=== PATIENT | female | born 1965 | race African-American/Black ===

== ENCOUNTER 2018-01-23 12:25 | Inpatient (IN) | payer OTHER ==
--- NOTE | 2018-01-23 10:54 | HP ---
[facility] Rehab Assess/Revision - Admission History Admitted to Rehab from: [facility] Date of Admission to Rehab: 01/23/18 - Findings Detox History & Physical reviewed: Yes Concur with findings: Yes Comments/Additional Findings: transferred from detox to rehab admission as per protocol Inpatient Rehab Admission - Initial Determination Are CD services needed?: Yes Free of communicable disease: Yes Not in need of hospitalization: Yes - Rehab Admission Criteria Previous failed treatment: Yes Poor recovery environment: Yes Comorbidities: Yes Lacks judgement: No Patient is meeting Inpatient Rehab admission criteria:: Yes
[~2018-01-23 12:25] MED LIST: ACETAMINOPHEN 325 MG TABLET (FP) PO PRN; IBUPROFEN 400 MG TABLET (FP) PO PRN; LOPERAMIDE HCL 2 MG CAPSULE PO PRN; MAGNESIUM CITRATE 300 ML BOTTLE PO PRN; MAGNESIUM HYDROX 2400MG/30ML ORAL SUSPENSION 30 ML CUP PO PRN; MENTHOL/PHENOL 1 EACH UD MM PRN; NICOTINE 14 MG/24 HOURS TOPICAL PATCH TD PRN; NICOTINE POLACRILEX 2 MG GUM BUC PRN; P-EPHED 60MG/TRIPROLIDI 2.5MG TABLET PO PRN; guaiFENesin/D-METHORPHAN HB 10 ML UNIT-DOSE CUPS PO PRN
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
[2018-01-23] MEDS ORDERED: INSULIN (NOVOLOG) ASPART 100 UNITS/ML 10ML VIAL SQ ONE (15:30)
--- NOTE | 2018-01-23 17:02 | PN ---
S Progress Note Note: Vital Signs Temperature 97.2 F L 01/23/18 12:46 Pulse Rate 97 H 01/23/18 12:46 Respiratory Rate 18 01/23/18 12:46 Blood Pressure 129/73 01/23/18 12:46 O2 Sat by Pulse Oximetry (%) last BGM 378 novolog 4 units ordered increase PO fluids continue to monitor
[2018-01-23] MEDS: THIAMINE HCL 100 MG TABLET (FP) PO SCH (21:34)
[2018-01-23] MEDS: LISINOPRIL 20 MG TABLET (FP) PO SCH (21:35)
[2018-01-23] MEDS: QUEtiapine FUMARATE 200 MG TABLET PO SCH (21:35)
[2018-01-23] MEDS ORDERED: LISINOPRIL 20 MG TABLET (FP) PO SCH (22:00)
[2018-01-24] MEDS ORDERED: PT OWN MED DRAWER 7, Y5N ONE (05:58)
[2018-01-24] MEDS: metFORMIN HCL 500 MG TABLET (FP) PO SCH (06:52)
[2018-01-24] MEDS: glyBURIDE 5 MG TABLET (UD) PO SCH (06:52)
[2018-01-24] MEDS ORDERED: INSULIN (NOVOLOG) ASPART 100 UNITS/ML 10ML VIAL SQ ONE ×2 (08:08→12:06)
[2018-01-24] MEDS ORDERED: INSULIN (NOVOLOG) ASPART 100 UNITS/ML 10ML VIAL ONE ×2 (08:43→12:18)
[2018-01-24] MEDS ORDERED: amLODIPine BESYLATE 10 MG TABLET (FP) PO SCH (10:00)
[2018-01-24] MEDS: LISINOPRIL 20 MG TABLET (FP) PO SCH ×2 (10:39→21:38)
[2018-01-24] MEDS: amLODIPine BESYLATE 10 MG TABLET (FP) PO SCH (10:39)
[2018-01-24] MEDS: PRENATAL VITAMINS W/ FOLIC ACID TABLET (FP) PO SCH (10:39)
[2018-01-24] MEDS: QUEtiapine FUMARATE 200 MG TABLET PO SCH ×2 (10:39→21:37)
[2018-01-24] MEDS ORDERED: INSULIN SLIDING SCALE (NOVOLOG) 1 VIAL SQ SCH (11:00)
--- NOTE | 2018-01-24 12:09 | PN ---
[facility] Progress Note Note: received nurse called finger stick 400 insulin regular 10 unit one dose now before lunch
[2018-01-24] MEDS: INSULIN SLIDING SCALE (NOVOLOG) 1 VIAL SQ PRN (17:04)
[2018-01-24] MEDS: THIAMINE HCL 100 MG TABLET (FP) PO SCH (21:38)
[2018-01-25] MEDS: glyBURIDE 5 MG TABLET (UD) PO SCH (07:31)
[2018-01-25] MEDS: metFORMIN HCL 500 MG TABLET (FP) PO SCH (07:31)
[2018-01-25] MEDS: INSULIN SLIDING SCALE (NOVOLOG) 1 VIAL SQ PRN ×2 (07:33→17:05)
[2018-01-25] MEDS ORDERED: INSULIN (NOVOLOG) ASPART 100 UNITS/ML 10ML VIAL ONE (07:34)
[2018-01-25] MEDS: LISINOPRIL 20 MG TABLET (FP) PO SCH ×2 (09:22→21:29)
[2018-01-25] MEDS: amLODIPine BESYLATE 10 MG TABLET (FP) PO SCH (09:22)
[2018-01-25] MEDS: PRENATAL VITAMINS W/ FOLIC ACID TABLET (FP) PO SCH (09:22)
[2018-01-25] MEDS: QUEtiapine FUMARATE 200 MG TABLET PO SCH ×2 (09:22→21:29)
[2018-01-25] MEDS ORDERED: PT OWN MED DRAWER 7, Y5N ONE ×2 (10:30→12:02)
[2018-01-25] MEDS: MAG HYDROX/AL HYDROX/SIMETH 30 ML UNIT-DOSE CUP PO PRN (11:06)
--- NOTE | 2018-01-25 13:55 | PN ---
S Progress Note Note: Vital Signs Temperature 98.1 F 01/25/18 07:48 Pulse Rate 77 01/25/18 09:24 Respiratory Rate 16 01/25/18 07:48 Blood Pressure 142/75 01/25/18 09:24 O2 Sat by Pulse Oximetry (%) Laboratory Last Values POC Glucometer 317 UNITS (80-120) 01/25/18 07:30 Patient currently taken zocor (NF) 20 mg qhs at home. lipitor ordered continue to monitor
--- NOTE | 2018-01-25 14:48 | PN ---
[facility] Progress Note Note: Vital Signs Temperature 98.1 F 01/25/18 07:48 Pulse Rate 77 01/25/18 09:24 Respiratory Rate 16 01/25/18 07:48 Blood Pressure 142/75 01/25/18 09:24 O2 Sat by Pulse Oximetry (%) Laboratory Last Values POC Glucometer 317 UNITS (80-120) 01/25/18 07:30 Patient reports hx of GERD and esophageal spasms. Reports while she was living in [place] her GI specialist treated her with Nitrostat and calcium channel blockers in 2007. Patient reports worsning reflux while in rehab and difficulty sleeping as result. Patient Aox3 no distress, obese EENT WNL, poor dentition no adventitious breath sounds full ROM - GERD Plan: protonix BID flexeril PRN low acidic diet fluids as tolerated continue to monitor Patient to follow up with GI upon discharge
[2018-01-25] MEDS: CYCLOBENZAPRINE HCL 5 MG TABLET PO SCH (21:31)
[2018-01-25] MEDS: ATORVASTATIN CA 20 MG TABLET (FP) PO SCH (21:31)
[2018-01-25] MEDS: MELATONIN 5 MG TABLETS PO PRN (21:31)
[2018-01-25] MEDS: PANTOPRAZOLE 40 MG TABLET (FP) PO SCH (21:37)
[2018-01-25] MEDS: THIAMINE HCL 100 MG TABLET (FP) PO SCH (21:40)
[2018-01-26] MEDS: glyBURIDE 5 MG TABLET (UD) PO SCH (06:38)
[2018-01-26] MEDS: metFORMIN HCL 500 MG TABLET (FP) PO SCH (06:38)
[2018-01-26] MEDS: CYCLOBENZAPRINE HCL 5 MG TABLET PO SCH ×3 (06:38→21:23)
[2018-01-26] MEDS: INSULIN SLIDING SCALE (NOVOLOG) 1 VIAL SQ PRN ×2 (07:51→11:55)
[2018-01-26] MEDS ORDERED: INSULIN (NOVOLOG) ASPART 100 UNITS/ML 10ML VIAL ONE ×2 (07:54→11:53)
[2018-01-26] MEDS: amLODIPine BESYLATE 10 MG TABLET (FP) PO SCH (10:11)
[2018-01-26] MEDS: QUEtiapine FUMARATE 200 MG TABLET PO SCH ×2 (10:12→21:24)
[2018-01-26] MEDS: LISINOPRIL 20 MG TABLET (FP) PO SCH ×2 (10:12→21:23)
[2018-01-26] MEDS: PANTOPRAZOLE 40 MG TABLET (FP) PO SCH ×2 (10:12→21:23)
[2018-01-26] MEDS: PRENATAL VITAMINS W/ FOLIC ACID TABLET (FP) PO SCH (10:12)
[2018-01-26] MEDS: MAG HYDROX/AL HYDROX/SIMETH 30 ML UNIT-DOSE CUP PO PRN (11:54)
--- NOTE | 2018-01-26 17:15 | PN ---
S Progress Note Note: NOTIFIED BY RN BLOOD SUGAR 362. PATIENT HAS SLIDING SCALE ORDERED AND IS DUE FOR 8 UNITS OF INSULIN. WILL CONTINUE TO MONITOR CLINICALLY. Vital Signs Temperature 97.4 F L 01/26/18 07:15 Pulse Rate 85 01/26/18 09:20 Respiratory Rate 18 01/26/18 07:15 Blood Pressure 150/80 01/26/18 09:20 O2 Sat by Pulse Oximetry (%)
[2018-01-26] MEDS: THIAMINE HCL 100 MG TABLET (FP) PO SCH (21:23)
[2018-01-26] MEDS: ATORVASTATIN CA 20 MG TABLET (FP) PO SCH (21:24)
[2018-01-27] MEDS: CYCLOBENZAPRINE HCL 5 MG TABLET PO SCH ×3 (06:25→21:21)
[2018-01-27] MEDS: glyBURIDE 5 MG TABLET (UD) PO SCH (06:25)
[2018-01-27] MEDS: metFORMIN HCL 500 MG TABLET (FP) PO SCH (06:26)
[2018-01-27] MEDS: INSULIN SLIDING SCALE (NOVOLOG) 1 VIAL SQ PRN ×2 (08:12→11:46)
[2018-01-27] MEDS ORDERED: INSULIN (NOVOLOG) ASPART 100 UNITS/ML 10ML VIAL ONE ×2 (08:12→11:46)
[2018-01-27] MEDS: QUEtiapine FUMARATE 200 MG TABLET PO SCH ×2 (09:56→21:21)
[2018-01-27] MEDS: amLODIPine BESYLATE 10 MG TABLET (FP) PO SCH (09:56)
[2018-01-27] MEDS: PANTOPRAZOLE 40 MG TABLET (FP) PO SCH ×2 (09:56→21:21)
[2018-01-27] MEDS: PRENATAL VITAMINS W/ FOLIC ACID TABLET (FP) PO SCH (09:56)
[2018-01-27] MEDS: LISINOPRIL 20 MG TABLET (FP) PO SCH ×2 (09:56→21:21)
[2018-01-27] MEDS: INSULIN SLIDING SCALE (NOVOLOG) 1 VIAL SQ SCH ×2 (16:48→21:58)
[2018-01-27] MEDS: THIAMINE HCL 100 MG TABLET (FP) PO SCH (21:21)
[2018-01-27] MEDS: ATORVASTATIN CA 20 MG TABLET (FP) PO SCH (21:21)
[2018-01-28] MEDS: CYCLOBENZAPRINE HCL 5 MG TABLET PO SCH ×3 (07:03→21:21)
[2018-01-28] MEDS: glyBURIDE 5 MG TABLET (UD) PO SCH (07:03)
[2018-01-28] MEDS: metFORMIN HCL 500 MG TABLET (FP) PO SCH (07:03)
[2018-01-28] MEDS: INSULIN SLIDING SCALE (NOVOLOG) 1 VIAL SQ SCH ×4 (07:04→21:57)
[2018-01-28] MEDS ORDERED: INSULIN (NOVOLOG) ASPART 100 UNITS/ML 10ML VIAL ONE ×2 (08:09→12:00)
[2018-01-28] MEDS: LISINOPRIL 20 MG TABLET (FP) PO SCH ×2 (09:50→21:21)
[2018-01-28] MEDS: PRENATAL VITAMINS W/ FOLIC ACID TABLET (FP) PO SCH (09:50)
[2018-01-28] MEDS: QUEtiapine FUMARATE 200 MG TABLET PO SCH ×2 (09:50→21:21)
[2018-01-28] MEDS: PANTOPRAZOLE 40 MG TABLET (FP) PO SCH ×2 (09:50→21:21)
[2018-01-28] MEDS: amLODIPine BESYLATE 10 MG TABLET (FP) PO SCH (09:50)
[2018-01-28] MEDS: THIAMINE HCL 100 MG TABLET (FP) PO SCH (21:21)
[2018-01-28] MEDS: ATORVASTATIN CA 20 MG TABLET (FP) PO SCH (21:21)
[2018-01-29] MEDS: metFORMIN HCL 500 MG TABLET (FP) PO SCH (06:26)
[2018-01-29] MEDS: glyBURIDE 5 MG TABLET (UD) PO SCH (06:26)
[2018-01-29] MEDS: CYCLOBENZAPRINE HCL 5 MG TABLET PO SCH ×3 (06:26→21:12)
[2018-01-29] MEDS: INSULIN SLIDING SCALE (NOVOLOG) 1 VIAL SQ SCH ×4 (07:49→22:54)
[2018-01-29] MEDS: amLODIPine BESYLATE 10 MG TABLET (FP) PO SCH (10:29)
[2018-01-29] MEDS: PANTOPRAZOLE 40 MG TABLET (FP) PO SCH ×2 (10:29→21:12)
[2018-01-29] MEDS: PRENATAL VITAMINS W/ FOLIC ACID TABLET (FP) PO SCH (10:29)
[2018-01-29] MEDS: LISINOPRIL 20 MG TABLET (FP) PO SCH ×2 (10:29→21:12)
[2018-01-29] MEDS: QUEtiapine FUMARATE 200 MG TABLET PO SCH ×2 (10:29→21:13)
[2018-01-29] MEDS ORDERED: INSULIN (NOVOLOG) ASPART 100 UNITS/ML 10ML VIAL ONE (11:58)
--- NOTE | 2018-01-29 19:11 | PN ---
[facility] Progress Note Note: Patient alert and oriented. Vital Signs - 24 hr 01/28/18 01/29/18 01/29/18 20:45 00:30 03:30 Temperature Pulse Rate 84 Respiratory 16 18 Rate Blood Pressure 144/79 01/29/18 01/29/18 07:13 09:30 Temperature 97.7 F Pulse Rate 83 86 Respiratory 20 18 Rate Blood Pressure 133/81 136/76 Continues to have elevated BGMs. CMP POC Glucometer 318 UNITS (80-120) 01/29/18 16:57 BGMs reviewed for past 48 hrs. Reviewed home meds and was receivng Basaglar. Started on Levemir HS. Will continue Novolog coverage.
[2018-01-29] MEDS: THIAMINE HCL 100 MG TABLET (FP) PO SCH (21:12)
[2018-01-29] MEDS: ATORVASTATIN CA 20 MG TABLET (FP) PO SCH (21:12)
[2018-01-29] MEDS: INSULIN (LEVEMIR) 100 UNITS/ML UNITS SQ SCH (22:53)
[2018-01-30] MEDS: CYCLOBENZAPRINE HCL 5 MG TABLET PO SCH ×3 (07:07→22:39)
[2018-01-30] MEDS: glyBURIDE 5 MG TABLET (UD) PO SCH (07:07)
[2018-01-30] MEDS: metFORMIN HCL 500 MG TABLET (FP) PO SCH (07:07)
[2018-01-30] MEDS: INSULIN SLIDING SCALE (NOVOLOG) 1 VIAL SQ SCH ×4 (07:55→22:39)
[2018-01-30] MEDS ORDERED: INSULIN (NOVOLOG) ASPART 100 UNITS/ML 10ML VIAL ONE ×3 (07:56→16:41)
[2018-01-30] MEDS: amLODIPine BESYLATE 10 MG TABLET (FP) PO SCH (10:19)
[2018-01-30] MEDS: PANTOPRAZOLE 40 MG TABLET (FP) PO SCH ×2 (10:20→22:40)
[2018-01-30] MEDS: QUEtiapine FUMARATE 200 MG TABLET PO SCH ×2 (10:20→22:40)
[2018-01-30] MEDS: PRENATAL VITAMINS W/ FOLIC ACID TABLET (FP) PO SCH (10:20)
[2018-01-30] MEDS: LISINOPRIL 20 MG TABLET (FP) PO SCH ×2 (10:20→22:40)
--- NOTE | 2018-01-30 17:25 | PN ---
S Progress Note Note: Vital Signs Temperature 97.9 F 01/30/18 09:30 Pulse Rate 92 H 01/30/18 09:30 Respiratory Rate 18 01/30/18 09:30 Blood Pressure 146/84 01/30/18 09:30 O2 Sat by Pulse Oximetry (%) Patient BGM at this time 510 schedule for 10 units re: sliding scale and additional 4 units ordered. Increase PO fluids continue to monitor
[2018-01-30] MEDS ORDERED: INSULIN (NOVOLOG) ASPART 100 UNITS/ML 10ML VIAL SQ ONE (17:45)
[2018-01-30] MEDS: ATORVASTATIN CA 20 MG TABLET (FP) PO SCH (22:39)
[2018-01-30] MEDS: THIAMINE HCL 100 MG TABLET (FP) PO SCH (22:40)
[2018-01-30] MEDS: INSULIN (LEVEMIR) 100 UNITS/ML UNITS SQ SCH (22:40)
[2018-01-30] MEDS ORDERED: PT OWN MED DRAWER 7, Y5N ONE (23:15)
[2018-01-31] MEDS: CYCLOBENZAPRINE HCL 5 MG TABLET PO SCH ×3 (07:26→21:27)
[2018-01-31] MEDS: INSULIN SLIDING SCALE (NOVOLOG) 1 VIAL SQ SCH ×5 (07:26→21:28)
[2018-01-31] MEDS: glyBURIDE 5 MG TABLET (UD) PO SCH (07:26)
[2018-01-31] MEDS: metFORMIN HCL 500 MG TABLET (FP) PO SCH (07:26)
[2018-01-31] MEDS ORDERED: INSULIN SLIDING SCALE (NOVOLOG) 1 VIAL SQ SCH (07:38)
[2018-01-31] MEDS ORDERED: INSULIN (NOVOLOG) ASPART 100 UNITS/ML 10ML VIAL ONE ×4 (07:52→21:54)
[2018-01-31] MEDS: amLODIPine BESYLATE 10 MG TABLET (FP) PO SCH (09:52)
[2018-01-31] MEDS: PANTOPRAZOLE 40 MG TABLET (FP) PO SCH ×2 (09:53→21:27)
[2018-01-31] MEDS: PRENATAL VITAMINS W/ FOLIC ACID TABLET (FP) PO SCH (09:53)
[2018-01-31] MEDS: LISINOPRIL 20 MG TABLET (FP) PO SCH ×2 (09:53→21:27)
[2018-01-31] MEDS: QUEtiapine FUMARATE 200 MG TABLET PO SCH ×2 (09:53→21:27)
--- NOTE | 2018-01-31 12:15 | PN ---
S Progress Note Note: NOTIFIED BY RN PATIENT BLOOD SUGAR 418. HAS SLIDING SCALE ORDERED TO RECEIVE 12 UNITS OF INSULIN. AGREE FOR PATIENT TO RECEIVE 12 UNITS. WILL CONTINUE TO MONITOR CLINICALLY.
[2018-01-31] MEDS ORDERED: COLLOIDAL OATMEAL 1 BAR EACH TP PRN (14:22)
--- NOTE | 2018-01-31 14:24 | PN ---
[facility] Progress Note Note: PATIENT REFERRED FOR C/O SORE THROAT WHICH SHE STATES NOW RESOLVED WITH TEA AND LEMON. NO TREATMENT WARRANTED AT THIS TIME. Vital Signs Temperature 97.4 F L 01/31/18 06:34 Pulse Rate 99 H 01/31/18 09:30 Respiratory Rate 18 01/31/18 09:30 Blood Pressure 123/82 01/31/18 09:30 O2 Sat by Pulse Oximetry (%)
[2018-01-31] MEDS: THIAMINE HCL 100 MG TABLET (FP) PO SCH (21:27)
[2018-01-31] MEDS: ATORVASTATIN CA 20 MG TABLET (FP) PO SCH (21:27)
[2018-01-31] MEDS: INSULIN (LEVEMIR) 100 UNITS/ML UNITS SQ SCH (21:29)
[2018-02-01] MEDS: CYCLOBENZAPRINE HCL 5 MG TABLET PO SCH ×3 (06:55→21:17)
[2018-02-01] MEDS: metFORMIN HCL 500 MG TABLET (FP) PO SCH (06:55)
[2018-02-01] MEDS: glyBURIDE 5 MG TABLET (UD) PO SCH (06:55)
[2018-02-01] MEDS: INSULIN SLIDING SCALE (NOVOLOG) 1 VIAL SQ SCH ×4 (07:53→21:18)
[2018-02-01] MEDS ORDERED: INSULIN (NOVOLOG) ASPART 100 UNITS/ML 10ML VIAL ONE ×4 (07:56→20:44)
[2018-02-01] MEDS: QUEtiapine FUMARATE 200 MG TABLET PO SCH ×2 (10:02→21:17)
[2018-02-01] MEDS: LISINOPRIL 20 MG TABLET (FP) PO SCH ×2 (10:02→21:17)
[2018-02-01] MEDS: amLODIPine BESYLATE 10 MG TABLET (FP) PO SCH (10:02)
[2018-02-01] MEDS: PRENATAL VITAMINS W/ FOLIC ACID TABLET (FP) PO SCH (10:03)
[2018-02-01] MEDS: PANTOPRAZOLE 40 MG TABLET (FP) PO SCH ×2 (10:03→21:18)
[2018-02-01] MEDS: THIAMINE HCL 100 MG TABLET (FP) PO SCH (21:17)
[2018-02-01] MEDS: ATORVASTATIN CA 20 MG TABLET (FP) PO SCH (21:17)
[2018-02-01] MEDS: INSULIN (LEVEMIR) 100 UNITS/ML UNITS SQ SCH (21:17)
[2018-02-02] MEDS: metFORMIN HCL 500 MG TABLET (FP) PO SCH (07:42)
[2018-02-02] MEDS: CYCLOBENZAPRINE HCL 5 MG TABLET PO SCH ×3 (07:42→21:14)
[2018-02-02] MEDS: glyBURIDE 5 MG TABLET (UD) PO SCH (07:42)
[2018-02-02] MEDS: INSULIN SLIDING SCALE (NOVOLOG) 1 VIAL SQ SCH ×4 (07:44→21:14)
[2018-02-02] MEDS ORDERED: INSULIN (NOVOLOG) ASPART 100 UNITS/ML 10ML VIAL ONE ×4 (07:45→21:59)
[2018-02-02] MEDS: PANTOPRAZOLE 40 MG TABLET (FP) PO SCH ×2 (09:41→21:14)
[2018-02-02] MEDS: PRENATAL VITAMINS W/ FOLIC ACID TABLET (FP) PO SCH (09:41)
[2018-02-02] MEDS: LISINOPRIL 20 MG TABLET (FP) PO SCH ×2 (09:41→21:14)
[2018-02-02] MEDS: QUEtiapine FUMARATE 200 MG TABLET PO SCH ×2 (09:41→21:15)
[2018-02-02] MEDS: amLODIPine BESYLATE 10 MG TABLET (FP) PO SCH (09:41)
--- NOTE | 2018-02-02 17:16 | PN ---
S Progress Note Note: Vital Signs Temperature 97.6 F 02/02/18 07:50 Pulse Rate 112 H 02/02/18 09:30 Respiratory Rate 18 02/02/18 09:30 Blood Pressure 162/77 02/02/18 09:30 O2 Sat by Pulse Oximetry (%) Patient reports she is on metformin 1000mg BID at home prescribed by her PCP and current QD dose is working in managing her. Dose increase from QD to BID. Continue to monitor
[2018-02-02] MEDS: INSULIN (LEVEMIR) 100 UNITS/ML UNITS SQ SCH (21:14)
[2018-02-02] MEDS: ATORVASTATIN CA 20 MG TABLET (FP) PO SCH (21:14)
[2018-02-02] MEDS: THIAMINE HCL 100 MG TABLET (FP) PO SCH (21:14)
[2018-02-03] MEDS: CYCLOBENZAPRINE HCL 5 MG TABLET PO SCH ×3 (06:12→21:14)
[2018-02-03] MEDS ORDERED: INSULIN (NOVOLOG) ASPART 100 UNITS/ML 10ML VIAL ONE ×3 (07:13→16:42)
[2018-02-03] MEDS: metFORMIN HCL 500 MG TABLET (FP) PO SCH ×2 (07:49→16:41)
[2018-02-03] MEDS: glyBURIDE 5 MG TABLET (UD) PO SCH (07:49)
[2018-02-03] MEDS: INSULIN SLIDING SCALE (NOVOLOG) 1 VIAL SQ SCH ×4 (07:50→21:09)
[2018-02-03] MEDS: QUEtiapine FUMARATE 200 MG TABLET PO SCH ×2 (09:55→21:10)
[2018-02-03] MEDS: PRENATAL VITAMINS W/ FOLIC ACID TABLET (FP) PO SCH (09:55)
[2018-02-03] MEDS: PANTOPRAZOLE 40 MG TABLET (FP) PO SCH ×2 (09:55→21:14)
[2018-02-03] MEDS: LISINOPRIL 20 MG TABLET (FP) PO SCH ×2 (09:56→21:14)
[2018-02-03] MEDS: amLODIPine BESYLATE 10 MG TABLET (FP) PO SCH (09:56)
[2018-02-03] MEDS: INSULIN (LEVEMIR) 100 UNITS/ML UNITS SQ SCH (21:11)
[2018-02-03] MEDS: ATORVASTATIN CA 20 MG TABLET (FP) PO SCH (21:14)
[2018-02-03] MEDS: THIAMINE HCL 100 MG TABLET (FP) PO SCH (21:15)
[2018-02-03] MEDS: MELATONIN 5 MG TABLETS PO PRN (21:15)
[2018-02-04] MEDS: CYCLOBENZAPRINE HCL 5 MG TABLET PO SCH ×3 (07:05→23:25)
[2018-02-04] MEDS: metFORMIN HCL 500 MG TABLET (FP) PO SCH ×2 (07:06→16:54)
[2018-02-04] MEDS: glyBURIDE 5 MG TABLET (UD) PO SCH (07:06)
[2018-02-04] MEDS ORDERED: PT OWN MED DRAWER 7, Y5N ONE (07:50)
[2018-02-04] MEDS: INSULIN SLIDING SCALE (NOVOLOG) 1 VIAL SQ SCH ×4 (07:51→21:25)
[2018-02-04] MEDS ORDERED: INSULIN (NOVOLOG) ASPART 100 UNITS/ML 10ML VIAL ONE ×2 (07:54→11:51)
[2018-02-04] MEDS: amLODIPine BESYLATE 10 MG TABLET (FP) PO SCH (10:03)
[2018-02-04] MEDS: PANTOPRAZOLE 40 MG TABLET (FP) PO SCH ×2 (10:03→23:26)
[2018-02-04] MEDS: LISINOPRIL 20 MG TABLET (FP) PO SCH ×2 (10:03→23:26)
[2018-02-04] MEDS: PRENATAL VITAMINS W/ FOLIC ACID TABLET (FP) PO SCH (10:04)
[2018-02-04] MEDS: QUEtiapine FUMARATE 200 MG TABLET PO SCH ×2 (10:04→23:26)
[2018-02-04] MEDS: INSULIN (LEVEMIR) 100 UNITS/ML UNITS SQ SCH (21:25)
[2018-02-04] MEDS: ATORVASTATIN CA 20 MG TABLET (FP) PO SCH (23:25)
[2018-02-04] MEDS: THIAMINE HCL 100 MG TABLET (FP) PO SCH (23:26)
[2018-02-05] MEDS: glyBURIDE 5 MG TABLET (UD) PO SCH (06:37)
[2018-02-05] MEDS: metFORMIN HCL 500 MG TABLET (FP) PO SCH ×2 (06:38→16:54)
[2018-02-05] MEDS: CYCLOBENZAPRINE HCL 5 MG TABLET PO SCH ×3 (06:38→21:14)
[2018-02-05] MEDS: INSULIN SLIDING SCALE (NOVOLOG) 1 VIAL SQ SCH ×4 (06:39→21:16)
[2018-02-05] MEDS ORDERED: PT OWN MED DRAWER 7, Y5N ONE ×2 (08:30→21:45)
[2018-02-05] MEDS: QUEtiapine FUMARATE 200 MG TABLET PO SCH ×2 (10:22→21:15)
[2018-02-05] MEDS: amLODIPine BESYLATE 10 MG TABLET (FP) PO SCH (10:22)
[2018-02-05] MEDS: LISINOPRIL 20 MG TABLET (FP) PO SCH ×2 (10:22→21:15)
[2018-02-05] MEDS: PANTOPRAZOLE 40 MG TABLET (FP) PO SCH ×2 (10:24→21:14)
[2018-02-05] MEDS: PRENATAL VITAMINS W/ FOLIC ACID TABLET (FP) PO SCH (10:25)
[2018-02-05] MEDS ORDERED: INSULIN (NOVOLOG) ASPART 100 UNITS/ML 10ML VIAL ONE ×2 (12:05→21:43)
[2018-02-05] MEDS: ATORVASTATIN CA 20 MG TABLET (FP) PO SCH (21:14)
[2018-02-05] MEDS: THIAMINE HCL 100 MG TABLET (FP) PO SCH (21:14)
[2018-02-05] MEDS: INSULIN (LEVEMIR) 100 UNITS/ML UNITS SQ SCH (21:16)
[2018-02-06] MEDS: metFORMIN HCL 500 MG TABLET (FP) PO SCH ×2 (06:37→17:03)
[2018-02-06] MEDS: CYCLOBENZAPRINE HCL 5 MG TABLET PO SCH ×3 (06:37→21:43)
[2018-02-06] MEDS: glyBURIDE 5 MG TABLET (UD) PO SCH (06:37)
[2018-02-06] MEDS: INSULIN SLIDING SCALE (NOVOLOG) 1 VIAL SQ SCH ×4 (08:12→21:44)
[2018-02-06] MEDS ORDERED: INSULIN (NOVOLOG) ASPART 100 UNITS/ML 10ML VIAL ONE ×2 (08:14→11:58)
[2018-02-06] MEDS: LISINOPRIL 20 MG TABLET (FP) PO SCH ×2 (09:57→21:44)
[2018-02-06] MEDS: amLODIPine BESYLATE 10 MG TABLET (FP) PO SCH (09:57)
[2018-02-06] MEDS: PRENATAL VITAMINS W/ FOLIC ACID TABLET (FP) PO SCH (09:57)
[2018-02-06] MEDS: QUEtiapine FUMARATE 200 MG TABLET PO SCH ×2 (09:57→21:44)
[2018-02-06] MEDS: PANTOPRAZOLE 40 MG TABLET (FP) PO SCH ×2 (09:57→21:44)
--- NOTE | 2018-02-06 10:42 | PN ---
Psychiatric Progress Note Vital Signs: Vital Signs Period Temp Pulse Resp BP Sys/Casas Pulse Ox Last 24 Hr 97.9 F 93-96 16-18 162-164/71-73 Date of Session: 02/06/18 Chief Complaint:: Discharge visit HPI: Patient addressed Alcohol dependence,PCP abuse comorbid with Bipolar disorder. ROS: HTN,GERD,Esophageal spasm,Hyperlipidemia. Current Medications: Active Medications Generic Name Dose Route Start Last Admin Trade Name Freq PRN Reason Stop Dose Admin Acetaminophen 650 mg 01/23/18 10:54 Tylenol - PO Q4H PRN FEVER Al Hydroxide/Mg Hydroxide 30 ml 01/23/18 10:54 01/26/18 11:54 Mylanta Oral Suspension - PO 30 ml Q6H PRN Administration DYSPEPSIA Amlodipine Besylate 10 mg 01/24/18 10:00 02/06/18 09:57 Norvasc - PO 10 mg DAILY RAMY Administration Atorvastatin Calcium 20 mg 01/25/18 22:00 02/05/18 21:14 Lipitor - PO 20 mg HS RAMY Administration Colloidal Oatmeal 1 applic 01/31/18 14:22 01/31/18 15:12 Aveeno Soap - TP 1 bar DAILY PRN Administration HYGEINE Cyclobenzaprine HCl 5 mg 01/25/18 22:00 02/06/18 06:37 Cyclobenzaprine Hcl PO 5 mg TID RAMY Administration Eucalyptus/Menthol/Phenol/Sorbitol 1 each 01/23/18 10:54 Cepastat Lozenge - MM Q4H PRN SORE THROAT Glyburide 10 mg 01/24/18 07:00 02/06/18 06:37 Diabeta - PO 10 mg DAILY@0700 RAMY Administration Guaifenesin 10 ml 01/23/18 10:54 Robitussin Dm - PO Q6H PRN COUGH Insulin Aspart 1 vial 01/31/18 08:00 02/06/18 08:12 Novolog Vial Sliding Scale - SQ 4 unit ACHS RAMY Administration Protocol Insulin Detemir 10 units 01/31/18 22:00 02/05/18 21:16 Levemir Vial SQ 10 units HS RAMY Administration Lisinopril 20 mg 01/23/18 22:00 02/06/18 09:57 Prinivil PO 20 mg BID RAMY Administration Loperamide HCl 4 mg 01/23/18 10:54 Imodium - PO Q6H PRN DIARRHEA Magnesium Citrate 300 ml 01/23/18 10:54 Citroma - PO Q48H PRN CONSTIPATION Magnesium Hydroxide 30 ml 01/23/18 10:54 Milk Of Magnesia - PO DAILY PRN CONSTIPATION Melatonin 5 mg 01/23/18 22:00 02/03/18 21:15 Melatonin PO 5 mg HS PRN Administration INSOMNIA Metformin HCl 1,000 mg 02/03/18 07:00 02/06/18 06:37 Glucophage - PO 1,000 mg BIDAC RAMY Administration Nicotine 14 mg 01/23/18 10:54 Nicoderm Patch - TD DAILY PRN WITHDRAWAL(CONT SUBST) Nicotine Polacrilex 2 mg 01/23/18 10:54 Nicorette Gum - BUC Q2H PRN NICOTINE REPLACEMENT RX Pantoprazole Sodium 40 mg 01/25/18 22:00 02/06/18 09:57 Protonix - PO 40 mg BID RAMY Administration Multivit/Folic Acid/Iron 1 tab 01/24/18 10:00 02/06/18 09:57 Vitamins (Sjr) - PO 1 tab DAILY RAMY Administration Pseudoephedrine/Triprolidine 1 combo 01/23/18 10:54 Actifed - PO TID PRN NASAL CONGESTION Quetiapine Fumarate 200 mg 01/23/18 22:00 02/06/18 09:57 Seroquel - PO 200 mg BID RAMY Administration Thiamine HCl 100 mg 01/23/18 22:00 02/05/18 21:14 Vitamin B1 - PO 100 mg HS RAMY Administration Current Side Effect: No Lab tests ordered: No Lab tests reviewed: Yes Provider note:: Patient will complete this program tomorrow 02/07/18.She has met her reatment goals and will continue to addres her issues on outpatient basis.patient reports finding that Seroquel 200 kg p bid helps to cope with mood instability,anxiety,sleeping dificulties.scripts provided. psychotherapy provided focusing on relapse prevention,coping skills,support utilization has been discussed with the patient. patient is stable for discharge tomorrow 02/07. Total face to face time:: 30 Mental Status Exam - Mental Status Exam Alert and Oriented to: Time, Place, Person Cognitive Function: Grossly Intact Patient Appearance: Well Groomed Mood: Hopeful, Euthymic Affect: Appropriate, Mood Congruent Patient Behavior: Cooperative Speech Pattern: Clear Voice Loudness: Normal Thought Process: Goal Oriented Thought Disorder: Not Present Hallucinations: Denies Suicidal Ideation: Denies Homicidal Ideation: Denies Insight/Judgement: Fair Sleep: Fair Appetite: Fair Muscle strength/Tone: Normal Gait/Station: Normal Psychiatric Treatment Plan - Problem List (1) Nicotine dependence Current Visit: Yes Qualifiers: Nicotine product type: cigarettes Substance use status: in withdrawal Qualified Code(s): F17.213 - Nicotine dependence, cigarettes, with withdrawal (2) Diabetes Current Visit: Yes Qualifiers: Diabetes mellitus type: type 2 Diabetes mellitus watermelon inspector insulin use: without watermelon inspector use Diabetes mellitus complication status: with hyperglycemia Qualified Code(s): E11.65 - Type 2 diabetes mellitus with hyperglycemia (3) GERD (gastroesophageal reflux disease) Current Visit: Yes Qualifiers: Esophagitis presence: esophagitis presence not specified Qualified Code(s) : K21.9 - Gastro-esophageal reflux disease without esophagitis (4) HLD (hyperlipidemia) Current Visit: Yes Qualifiers: Hyperlipidemia type: unspecified Qualified Code(s): E78.5 - Hyperlipidemia , unspecified (5) HTN (hypertension) Current Visit: Yes Qualifiers: Hypertension type: essential hypertension Qualified Code(s): I10 - Essential (primary) hypertension (6) Alcohol dependence Current Visit: Yes (7) PCP abuse Current Visit: Yes (8) History of positive PPD Current Visit: Yes (9) Bipolar II disorder Current Visit: Yes (10) Esophageal spasm Current Visit: Yes
--- NOTE | 2018-02-06 15:00 | PN ---
[facility] Progress Note Note: Vital Signs Temperature 97.9 F 02/06/18 07:08 Pulse Rate 99 H 02/06/18 09:30 Respiratory Rate 18 02/06/18 09:30 Blood Pressure 150/78 02/06/18 09:30 O2 Sat by Pulse Oximetry (%) Patient medically stable. Patient schedule to complete this program 02/07/18. Patient to followup with primary care provider in a week.
[2018-02-06] MEDS: INSULIN (LEVEMIR) 100 UNITS/ML UNITS SQ SCH (21:43)
[2018-02-06] MEDS: ATORVASTATIN CA 20 MG TABLET (FP) PO SCH (21:43)
[2018-02-06] MEDS: THIAMINE HCL 100 MG TABLET (FP) PO SCH (21:44)
[2018-02-07] MEDS: CYCLOBENZAPRINE HCL 5 MG TABLET PO SCH (06:30)
[2018-02-07] MEDS: glyBURIDE 5 MG TABLET (UD) PO SCH (06:30)
[2018-02-07] MEDS: metFORMIN HCL 500 MG TABLET (FP) PO SCH (06:30)
[2018-02-07 06:54] VITALS: TEMP 97.7
[2018-02-07] MEDS: INSULIN SLIDING SCALE (NOVOLOG) 1 VIAL SQ SCH (07:56)
[2018-02-07] MEDS ORDERED: INSULIN (NOVOLOG) ASPART 100 UNITS/ML 10ML VIAL ONE (08:06)
[2018-02-07] MEDS: amLODIPine BESYLATE 10 MG TABLET (FP) PO SCH (09:47)
[2018-02-07] MEDS: PRENATAL VITAMINS W/ FOLIC ACID TABLET (FP) PO SCH (09:47)
[2018-02-07] MEDS: PANTOPRAZOLE 40 MG TABLET (FP) PO SCH (09:48)
[2018-02-07] MEDS: LISINOPRIL 20 MG TABLET (FP) PO SCH (09:48)
[2018-02-07] MEDS: QUEtiapine FUMARATE 200 MG TABLET PO SCH (09:48)
[2018-02-07 10:11] VITALS: BP 168/82; PULSE 82
== END 2018-02-07 09:50 | disposition home or self-care (01) | DRG 772 ==
LOC: YASAS 12:25 → Y3E 12:28
PROVIDERS: ADMIT Psychiatry & Neurology Psychiatry; ATTEND Psychiatry & Neurology Psychiatry
PROC: HZ42ZZZ Group Counseling for Substance Abuse Treatment, Cognitive-Behavioral (ICD-10-PCS; principal; 2018-01-23)
DX: F10.20 Alcohol dependence, uncomplicated (principal); F14.10 Cocaine abuse, uncomplicated; F16.10 Hallucinogen abuse, uncomplicated; F17.213 Nicotine dependence, cigarettes, with withdrawal; F31.81 Bipolar II disorder; I10 Essential (primary) hypertension; E78.5 Hyperlipidemia, unspecified; E11.65 Type 2 diabetes mellitus with hyperglycemia; Z79.84 Long term (current) use of oral hypoglycemic drugs; K22.4 Dyskinesia of esophagus; R76.11 Nonspecific reaction to tuberculin skin test without active tuberculosis; K21.9 Gastro-esophageal reflux disease without esophagitis
CPT/HCPCS: 36415; 82962; 87389